=== PATIENT | male | born 1990 | race Caucasian/White ===

== ENCOUNTER 2016-12-18 17:53 | Emergency (ER) | payer SELFPAY ==
[~2016-12-18] VITALS: Ht 172.7 cm; Wt 75.0 kg
[2016-12-18 18:10] VITALS: BP 117/83
== END 2016-12-18 22:39 | disposition left against medical advice (07) ==
LOC: ER 22:39
DX: H92.09 Otalgia, unspecified ear (principal); Z53.21 Procedure and treatment not carried out due to patient leaving prior to being seen by health care provider